=== PATIENT | female | born 1955 | race Caucasian/White ===

== ENCOUNTER 2018-07-11 08:32 | Day surgery (SDC) | payer OTHER, SELFPAY ==
[2018-07-11 08:41] VITALS: BP 115/71; PULSE 98; RESP 16; TEMP 36.8; O2SAT 100; BMI 24.7
[2018-07-11] MEDS: SODIUM CHLORIDE 0.9% 1,000 ML 200 ML IV (08:57)
--- NOTE | 2018-07-11 09:24 | PM.HP.1 ---
History of Present Illness Date Patient Seen: 07/11/18 Time Patient Seen: 09:24 Chief complaint: colonoscopy 08859 Narrative: 62-year-old female with personal history of colon polyps who presents now for colorectal screening. It has been at least 5 years since her last examination. On further history today she denies any recent gastrointestinal symptoms. No nausea, vomiting, loss of appetite, abdominal pain, unintended weight loss, change in bowel habits, diarrhea, constipation, melena, hematochezia, or bright red blood per rectum. Patient History Medical History Abnormal Pap smear of cervix (Chronic ~1992) Chronic back pain (Chronic ~1999) Colon polyps (Chronic ~2008) GERD (gastroesophageal reflux disease) (Chronic) Hiatal hernia (Chronic) Migraines (Chronic ~1983) Surgical History Anesthesia (Resolved) Broken nose (Resolved) Status post delivery Status post delivery Status post colonoscopy Family & Social History Family History: Reviewed 07/11/18 by Albaro Murray MD Social History: household members family Tobacco & Substance use: Smoking Status Former smoker Meds Home Medications Medication Instructions Recorded Confirmed Type omeprazole magnesium [Prilosec OTC] 20 mg PO Q DAY #0 08/29/11 01/19/18 History mupirocin 2 % TOPICAL QID #22 gm 08/10/16 01/19/18 Rx cephalexin [Keflex] 500 mg PO TID #21 cap 10/11/17 01/19/18 Rx terbinafine HCl [Lamisil] 250 mg PO QDAY #84 tab 10/11/17 01/19/18 Rx varicella-zoster glycoE vacc-[id number] 0.5 ml IM ONCE #1 each 01/19/18 Rx adj(PF) 50 mcg/0.5 mL IM susp, kit Allergies Allergy/AdvReac Type Severity Reaction Status Date / Time clindamycin Allergy Mild Rash Verified 07/11/18 08:41 Review of Systems Review of Systems All systems reviewed & are unremarkable except as noted in HPI and below Exam Vital Signs (past 8 hours): - 07/11/18 08:41 Temperature 98.2 F Pulse Rate 98 H Respiratory Rate 16 Blood Pressure 115/71 Pulse Oximetry 100 Oxygen Delivery Method Room Air Narrative Exam Narrative: Well-nourished well-developed female in no acute distress. Alert oriented x3 Sclera nonicteric Regular rate and rhythm. No murmurs, gallops, rubs. No crackles or wheezes. Abdomen soft, nondistended, nontender, no masses Extremities show no clubbing, cyanosis, or edema Objective Labs Labs: No recent laboratory or radiographic studies review Assessment & Plan Plan: Assessment/Plan Narrative: 62-year-old female with personal history of colon polyps who requires colorectal screening for such. Colonoscopy is currently recommended. Technical details of the procedure were explained. Risks, benefits, alternatives were discussed. Risks including but not limited to sedation, aspiration, bleeding, pain, missed lesion, incomplete examination, need for further radiographic studies, colonic perforation, need for major abdominal surgery, and all attendant risks of major surgery were discussed in detail. All questions were answered to her satisfaction, and she voiced understanding. Consent was placed on the chart. We will proceed as above.
--- NOTE | 2018-07-11 09:27 | PM.PREOP ---
Pre-operative Note Interval Note Pre-op Check: Yes History & Physical Reviewed by Physician, Yes Exam Performed and Yes History & Physical exam performed today by Physician Changes: No H&P completed within 30 days and has changed as indicated here:: Patient seen and examined today. History and physical examination documented and placed on the chart. Proceed with colonoscopy today as planned. ASA Class (for procedural sedation): I
[2018-07-11] MEDS: fentaNYL 250 MCG/5 ML INJ IV (09:50)
[2018-07-11] MEDS: MIDAZOLAM 5 MG/5 ML VIAL IV (09:51)
--- NOTE | 2018-07-11 09:54 | PM.OP.ENDO ---
Operative Date/Time/Diagnoses Date of procedure: 07/11/18 Time of procedure: 09:54 Pre-op diagnosis: Personal history of colon polyps Post-op diagnosis: same Procedure & Clinicians Study performed: 1. Sedation per surgeon 2. Colonoscopy Same procedure as scheduled: Yes Indications: 62-year-old female with history of colon polyps many years ago on endoscopy. However, her last endoscopy was normal approximately 5 years ago. She presents now for colorectal surveillance. Colonoscopy is once again recommended. Surgeon: Albaro Murray Procedure Notes SCOAP/Timeout: Yes Procedure in detail: After obtaining informed consent, the patient was brought to the GI suite and placed in the left lateral decubitus position on the examination table. After placement of appropriate monitors, the patient was given incremental doses of Versed and Fentanyl until an appropriate level of sedation was achieved. A time out was held per SCOAP protocol. A digital rectal examination was performed and did not reveal any masses or obstructing lesions. The colonoscope was gently passed into the patient's anus and the entire colon navigated to the level of the cecum with minimal difficulty. Once in the cecum, the scope was withdrawn being sure to go before and beyond all mucosal folds and prominences and get an excellent examination. The findings are noted above. At the level of the rectal vault, the scope was retroflexed and the internal anal canal was examined. The scope was straightened and air aspirated from the colon. The instrument was removed from the patient's body and the procedure was concluded. The patient was allowed to awaken from sedation without difficulty and taken to the post-anesthesia care unit in good condition. Scope withdrawal time: 7:28 min Sedation minutes: 21 Findings: diverticulosis and other findings (External hemorrhoids, not inflamed or thrombosed) Specimen(s): none sent Complications: none Recommendations: Colonscopy in 10 years and High fiber diet Plan for aftercare: 1. Discharged home Follow up: as needed Disposition: PACU
[2018-07-11 09:56] VITALS: BP 101/66; PULSE 85; RESP 14; TEMP 36.7; O2SAT 100
[2018-07-11 10:02] VITALS: BP 96/62; PULSE 79; RESP 13; O2SAT 100
[2018-07-11 10:06] VITALS: BP 99/68; PULSE 84; RESP 11; TEMP 37.1; O2SAT 100
[2018-07-11 10:11] VITALS: BP 98/64; PULSE 82; RESP 15; TEMP 36.7; O2SAT 99
== END 2018-07-11 10:24 ==
LOC: ENDO 08:33
PROVIDERS: PCP Family Medicine; Visit Provider Surgery
PROC: 0DJD8ZZ Inspection of Lower Intestinal Tract, Via Natural or Artificial Opening Endoscopic (ICD-10-PCS; CPT 45378; principal; 2018-07-11 09:45)
DX: Z86.010 Personal history of colon polyps (principal); K57.30 Diverticulosis of large intestine without perforation or abscess without bleeding; K64.4 Residual hemorrhoidal skin tags; Z87.891 Personal history of nicotine dependence
CPT/HCPCS: 45378; 99152; J2250; J3010

== ENCOUNTER → 2018-12-12 07:32 | Outpatient (CLI) | payer OTHER, SELFPAY ==
--- NOTE | 2018-12-12 | DI.MG.S_ITS ---
BILATERAL DIGITAL SCREENING MAMMOGRAM 3D/2D WITH CAD: 12/12/2018 CLINICAL: Routine screening. Family history of breast cancer. Comparison is made to exams dated: 12/06/2017 mammogram, 12/03/2016 mammogram, and 11/28/2015 mammogram - [facility]. The tissue of both breasts is heterogeneously dense. This may lower the sensitivity of mammography. Current study was also evaluated with a Computer Aided Detection (CAD) system. No significant masses, calcifications, or other findings are seen in either breast. There has been no significant interval change. IMPRESSION: NEGATIVE There is no mammographic evidence of malignancy. A 1 year screening mammogram is recommended. This exam was interpreted at Station ID: [id number]. NOTE: For mammograms, a report in lay terms will be sent to the patient. Approximately 15% of breast malignancies will not be visualized mammographically. In the management of a palpable breast mass, a negative mammogram must not discourage biopsy of a clinically suspicious lesion. Electronically Signed By: Stephania kennedy/yogi:12/12/2018 09:23:00 letter sent: Normal Exam ACR BI-RADS Category 1: Negative 3341F
[2018-12-12 08:09] LABS: Add Manual Diff / Slide Review NO; Basophils Absolute Auto 0 /uL (0-100); Basophils Percent Auto 0.8 % (0-2); Eosinophils Absolute Auto 100 /uL (0-450); Eosinophils Percent Auto 2.4 % (2-4); Hematocrit 42.4 % (36-46); Hemoglobin 14.1 g/dL (12.0-16.0); Lymphocytes Absolute Auto 1700 /uL (1100-4500); Lymphocytes Percent Auto 40.6 % (25-40); Mean Corpuscular HGB Conc 33.2 % (30-36); Mean Corpuscular Hemoglobin 29.7 PG (26-34); Mean Corpuscular Volume 89.3 fL (80-100); Monocytes Absolute Auto 400 /uL (0-900); Neutrophils Absolute Auto 2000 /uL (1500-7000); Neutrophils Percent Auto 47.2 % (50-75); Platelet Count 232 X10^3/uL (150-400); Red Blood Cell Count 4.75 X10^6/uL (4.0-5.2); Red Cell Distribution Width 12.9 % (11.6-14.8); White Blood Cell Count 4.1 X10^3/uL (4.5-11.0)
[2018-12-12 08:16] LABS: Alanine Aminotransferase 30 IU/L (9-52); Albumin 4.8 g/dL (3.5-5.0); Albumin Globulin Ratio 1.5 (1.0-2.8); Alkaline Phosphatase 55 U/L (38-126); Aspartate Aminotransferase 30 IU/L (14-36); BUN Creatinine Ratio 18.8 (6-22); Bilirubin Total 0.2 mg/dL (0.2-1.3); Blood Urea Nitrogen 15 mg/dL (7-17); Calcium 10.2 mg/dL (8.4-10.2); Carbon Dioxide 30 mmol/L (22-32); Chloride 103 mmol/L (98-107); Cholesterol 207 mg/dL (140-199); Estimated Glomerular Filt Rate > 60.0 mL/min (>60); Globulin 3.3 g/dL (1.7-4.1); Glucose 101 mg/dL (80-110); HDL Cholesterol 40 mg/dL (40-60); HEMOLYSIS < 15 (0-50); LDL Cholesterol Calculated 146 mg/dL (<100); Potassium 4.6 mmol/L (3.4-5.1); Sodium 142 mmol/L (137-145); Total Protein 8.1 g/dL (6.3-8.2); Triglycerides 107 mg/dL (35-150)
[2018-12-12 08:59] LABS: TSH w/ Reflex to FT4 2.62 uIU/mL (0.47-4.68)
== END ==
PROVIDERS: PCP Family Medicine; Visit Provider Family Medicine
DX: Z00.00 Encounter for general adult medical examination without abnormal findings (principal); Z12.31 Encounter for screening mammogram for malignant neoplasm of breast; Z80.3 Family history of malignant neoplasm of breast; E78.2 Mixed hyperlipidemia
CPT/HCPCS: 36415; 77063; 77067; 80053; 80061; 84443; 85025

== ENCOUNTER → 2019-01-25 10:13 | Outpatient (CLI) | payer OTHER, SELFPAY ==
--- NOTE | 2019-01-25 10:14 | DI.RAD.S_ITS ---
PROCEDURE: XR CHEST 2V INDICATIONS: Cough TECHNIQUE: 2 views of the chest were acquired. COMPARISON: None. FINDINGS: Surgical changes and devices: None. Lungs and pleura: Lungs are clear. No pleural effusions or pneumothorax. Mediastinum: Mediastinal contours are normal. Heart size is normal. Bones and chest wall: No suspicious bony abnormalities. Soft tissues appear unremarkable. IMPRESSION: Normal for age, source of current cough symptoms is not seen. Dictated by: Obed Nagy M.D. on 01/25/2019 at 10:48 Approved by: Obed Nagy M.D. on 01/25/2019 at 10:48
== END ==
PROVIDERS: PCP Family Medicine; Visit Provider Family Medicine
DX: R05 Cough (principal)
CPT/HCPCS: 71046

== ENCOUNTER → 2020-01-29 07:37 | Outpatient (CLI) | payer OTHER, SELFPAY ==
--- NOTE | 2020-01-29 | DI.MG.S_ITS ---
BILATERAL DIGITAL SCREENING MAMMOGRAM 3D/2D WITH CAD: 01/29/2020 CLINICAL: Routine screening. Family history of breast cancer. Comparison is made to exams dated: 12/12/2018 mammogram, 12/06/2017 mammogram, and 12/03/2016 mammogram - [facility]. The tissue of both breasts is heterogeneously dense. This may lower the sensitivity of mammography. Current study was also evaluated with a Computer Aided Detection (CAD) system. No significant masses, calcifications, or other findings are seen in either breast. There has been no significant interval change. IMPRESSION: NEGATIVE There is no mammographic evidence of malignancy. A 1 year screening mammogram is recommended. This exam was interpreted at Station ID: [id number]. NOTE: For mammograms, a report in lay terms will be sent to the patient. Approximately 15% of breast malignancies will not be visualized mammographically. In the management of a palpable breast mass, a negative mammogram must not discourage biopsy of a clinically suspicious lesion. Electronically Signed By: Stephania kennedy/yogi:01/29/2020 09:07:21 letter sent: Normal Exam ACR BI-RADS Category 1: Negative 3341F
[2020-01-29 08:25] LABS: Add Manual Diff / Slide Review NO; Basophils Absolute Auto 0 /uL (0-100); Basophils Percent Auto 0.9 % (0-2); Eosinophils Absolute Auto 100 /uL (0-450); Eosinophils Percent Auto 2.6 % (2-4); Hematocrit 40.6 % (36-46); Hemoglobin 13.7 g/dL (12.0-16.0); Lymphocytes Absolute Auto 1600 /uL (1100-4500); Lymphocytes Percent Auto 38.1 % (25-40); Mean Corpuscular HGB Conc 33.7 % (30-36); Mean Corpuscular Hemoglobin 29.9 PG (26-34); Mean Corpuscular Volume 88.8 fL (80-100); Monocytes Absolute Auto 400 /uL (0-900); Monocytes Percent Auto 9.1 % (3-14); Neutrophils Absolute Auto 2000 /uL (1500-7000); Neutrophils Percent Auto 49.3 % (50-75); Platelet Count 228 X10^3/uL (150-400); Red Blood Cell Count 4.58 X10^6/uL (4.0-5.2); Red Cell Distribution Width 12.9 % (11.6-14.8); White Blood Cell Count 4.1 X10^3/uL (4.5-11.0)
[2020-01-29 08:41] LABS: Alanine Aminotransferase 25 IU/L (<35); Albumin 4.8 g/dL (3.5-5.0); Albumin Globulin Ratio 1.5 (1.0-2.8); Alkaline Phosphatase 53 U/L (38-126); Aspartate Aminotransferase 35 IU/L (14-36); BUN Creatinine Ratio 20.3 (6-22); Bilirubin Total 0.5 mg/dL (0.2-1.3); Blood Urea Nitrogen 15 mg/dL (7-17); Calcium 10.3 mg/dL (8.4-10.2); Carbon Dioxide 28 mmol/L (22-32); Chloride 106 mmol/L (98-107); Cholesterol 205 mg/dL (140-199); Estimated Glomerular Filt Rate > 60.0 mL/min (>60); Globulin 3.3 g/dL (1.7-4.1); Glucose 97 mg/dL (80-110); HDL Cholesterol 40 mg/dL (40-60); HEMOLYSIS < 15 (0-50); LDL Cholesterol Calculated 144 mg/dL (<100); Potassium 4.6 mmol/L (3.4-5.1); Sodium 141 mmol/L (137-145); Total Protein 8.1 g/dL (6.3-8.2); Triglycerides 103 mg/dL (35-150)
== END ==
PROVIDERS: PCP Family Medicine; Referring Provider Family Medicine; Visit Provider Family Medicine
DX: Z12.31 Encounter for screening mammogram for malignant neoplasm of breast; Z80.3 Family history of malignant neoplasm of breast; E78.5 Hyperlipidemia, unspecified
CPT/HCPCS: 36415; 77063; 77067; 80053; 80061; 85025

== ENCOUNTER → 2020-02-12 13:09 | Outpatient (CLI) | payer OTHER, SELFPAY | PROVIDERS: PCP Family Medicine; Referring Provider Family Medicine; Visit Provider Family Medicine | DX: M85.851 Other specified disorders of bone density and structure, right thigh (principal); Z78.0 Asymptomatic menopausal state; Z87.891 Personal history of nicotine dependence | CPT/HCPCS: 77080 ==

== ENCOUNTER → 2020-10-24 07:07 | Outpatient (CLI) | payer OTHER, SELFPAY ==
[2020-10-24 08:35] LABS: Alanine Aminotransferase 21 IU/L (<35); Albumin 4.4 g/dL (3.5-5.0); Albumin Globulin Ratio 1.6 (1.0-2.8); Alkaline Phosphatase 47 U/L (38-126); Aspartate Aminotransferase 29 IU/L (14-36); BUN Creatinine Ratio 23.9 (6-22); Bilirubin Total 0.3 mg/dL (0.2-1.3); Blood Urea Nitrogen 17 mg/dL (7-17); Carbon Dioxide 30 mmol/L (22-32); Chloride 105 mmol/L (98-107); Cholesterol 144 mg/dL (140-199); Estimated Glomerular Filt Rate > 60.0 mL/min (>60); Globulin 2.7 g/dL (1.7-4.1); Glucose 93 mg/dL (80-110); HDL Cholesterol 50 mg/dL (40-60); HEMOLYSIS < 15 (0-50); LDL Cholesterol Calculated 83 mg/dL (<100); Potassium 4.7 mmol/L (3.4-5.1); Sodium 140 mmol/L (137-145); Total Protein 7.1 g/dL (6.3-8.2); Triglycerides 57 mg/dL (35-150)
== END ==
PROVIDERS: PCP Family Medicine; Referring Provider Family Medicine; Visit Provider Family Medicine
DX: E78.2 Mixed hyperlipidemia (principal)
CPT/HCPCS: 36415; 80053; 80061

== ENCOUNTER → 2021-02-17 10:33 | Outpatient (CLI) | payer OTHER, SELFPAY ==
--- NOTE | 2021-02-17 | DI.MG.S_ITS ---
BILATERAL DIGITAL SCREENING MAMMOGRAM 3D/2D WITH CAD: 02/17/2021 CLINICAL: Routine screening. Family history of breast cancer. Comparison is made to exams dated: 01/29/2020 mammogram, 12/12/2018 mammogram, and 12/06/2017 mammogram - [facility]. The tissue of both breasts is heterogeneously dense. This may lower the sensitivity of mammography. Current study was also evaluated with a Computer Aided Detection (CAD) system. No suspicious mammographic finding in either breast. IMPRESSION: NEGATIVE No mammographic evidence of malignancy. Screening mammography is recommended. This exam was interpreted at Station ID: [id number]. NOTE: For mammograms, a report in lay terms will be sent to the patient. Approximately 15% of breast malignancies will not be visualized mammographically. In the management of a palpable breast mass, a negative mammogram must not discourage biopsy of a clinically suspicious lesion. Electronically Signed By: Allen Brooks M.D. jr/:02/17/2021 13:10:31 Entry: sharad - 02/18/2021 09:17:11 letter sent: Normal Exam ACR BI-RADS Category 1: Negative 3341F
== END ==
PROVIDERS: PCP Family Medicine; Referring Provider Family Medicine; Visit Provider Family Medicine
DX: Z12.31 Encounter for screening mammogram for malignant neoplasm of breast (principal); Z80.3 Family history of malignant neoplasm of breast
CPT/HCPCS: 77063; 77067

== ENCOUNTER → 2022-02-18 07:04 | Outpatient (CLI) | payer OTHER, SELFPAY ==
--- NOTE | 2022-02-18 07:05 | DI.MG.S_ITS ---
BILATERAL DIGITAL SCREENING MAMMOGRAM 3D/2D WITH CAD: 02/18/2022 CLINICAL: Routine screening. Family history of breast cancer. Comparison is made to exams dated: 02/17/2021 mammogram, 01/29/2020 mammogram, and 12/12/2018 mammogram - [facility]. The tissue of both breasts is heterogeneously dense. This may lower the sensitivity of mammography. Current study was also evaluated with a Computer Aided Detection (CAD) system. There are mole markers on the right breast. There is a mole marker on the left breast. No significant masses, calcifications, or other findings are seen in either breast. There has been no significant interval change. IMPRESSION: NEGATIVE There is no mammographic evidence of malignancy. A 1 year screening mammogram is recommended. This exam was interpreted at Station ID: [id number]. NOTE: For mammograms, a report in lay terms will be sent to the patient. Approximately 15% of breast malignancies will not be visualized mammographically. In the management of a palpable breast mass, a negative mammogram must not discourage biopsy of a clinically suspicious lesion. Electronically Signed By: Bob Rivas acr/penrad:02/18/2022 10:03:15 letter sent: Normal Exam ACR BI-RADS Category 1: Negative 3341F
[2022-02-18 08:26] LABS: Alanine Aminotransferase 24 IU/L (<35); Albumin 4.7 g/dL (3.5-5.0); Albumin Globulin Ratio 1.5 (1.0-2.8); Alkaline Phosphatase 55 U/L (38-126); Aspartate Aminotransferase 32 IU/L (14-36); BUN Creatinine Ratio 17.9 (6-22); Bilirubin Total 0.4 mg/dL (0.2-1.3); Blood Urea Nitrogen 14 mg/dL (7-17); Calcium 9.3 mg/dL (8.4-10.2); Carbon Dioxide 30 mmol/L (22-32); Chloride 103 mmol/L (98-107); Estimated Glomerular Filt Rate > 60 mL/min (>60); Globulin 3.1 g/dL (1.7-4.1); Glucose 90 mg/dL (80-110); HEMOLYSIS < 15 (0-50); Sodium 141 mmol/L (137-145); Total Protein 7.8 g/dL (6.3-8.2)
== END ==
PROVIDERS: PCP Family Medicine; Referring Provider Family Medicine; Visit Provider Family Medicine
DX: Z12.31 Encounter for screening mammogram for malignant neoplasm of breast (principal); Z80.3 Family history of malignant neoplasm of breast; E78.2 Mixed hyperlipidemia; K21.00 Gastro-esophageal reflux disease with esophagitis, without bleeding
CPT/HCPCS: 36415; 77063; 77067; 80053

== ENCOUNTER → 2022-07-27 07:43 | Outpatient (CLI) | payer OTHER, SELFPAY ==
[2022-07-27 09:34] LABS: Cholesterol 149 mg/dL (140-199); HDL Cholesterol 48 mg/dL (40-60); LDL Cholesterol Calculated 87 mg/dL (<100); Triglycerides 68 mg/dL (35-150)
== END ==
PROVIDERS: PCP Family Medicine; Referring Provider Family Medicine; Visit Provider Family Medicine
DX: Z00.00 Encounter for general adult medical examination without abnormal findings (principal); E78.2 Mixed hyperlipidemia
CPT/HCPCS: 36415; 80061

== ENCOUNTER → 2022-12-07 09:20 | Outpatient (CLI) | payer MEDICARE, SELFPAY ==
--- NOTE | 2022-12-07 09:23 | DI.MG.S_ITS ---
BILATERAL DIGITAL DIAGNOSTIC MAMMOGRAM 3D/2D: 12/07/2022 CLINICAL: Right breast lump. Comparison is made to exams dated: 02/18/2022 mammogram, 02/17/2021 mammogram, 01/29/2020 mammogram, 12/12/2018 mammogram, and 12/06/2017 mammogram - [facility]. Both breasts are heterogeneously dense, which may obscure small masses (category c / 51-75% glandular tissue). No significant masses, calcifications, or other findings are seen in either breast. IMPRESSION: INCOMPLETE: NEEDS ADDITIONAL IMAGING EVALUATION No mammographic evidence of malignancy. A targeted ultrasound is recommended and will immediately follow. Based on the Tyrer Cuzick model (a risk assessment model) the patient's lifetime risk is 15.8% and her 10 year risk is 7.8%. According to the ACR, ACS, and NCCN guidelines, an annual breast MRI exam along with mammogram is recommended if the patient's lifetime risk is 20% or greater. This exam was interpreted at Station ID: [id number]. NOTE: For mammograms, a report in lay terms will be sent to the patient. Approximately 15% of breast malignancies will not be visualized mammographically. In the management of a palpable breast mass, a negative mammogram must not discourage biopsy of a clinically suspicious lesion. Electronically Signed By: Ishan Saldivar M.D. slc/:12/07/2022 10:21:23 ACR BI-RADS Category 0: Incomplete [id number]
--- NOTE | 2022-12-07 09:23 | DI.US.S_ITS ---
LIMITED ULTRASOUND OF RIGHT BREAST: 12/07/2022 CLINICAL: Palpable right breast lump. Comparison is made to exams dated: 12/07/2022 mammogram, 02/18/2022 mammogram, 02/17/2021 mammogram, 01/29/2020 mammogram, 12/12/2018 mammogram, and 12/06/2017 mammogram - [facility]. Color flow, real-time, and continuous wave Doppler ultrasound of the right breast 9 o'clock, 12 o'clock, and retroareolar regions were performed. Platt scale images of the real-time examination were reviewed. There is a 3.6 cm x 2.4 cm x 1 cm mass with an indistinct margin in the right breast at 9 o'clock in the retroareolar region. This mass is hypoechoic. This correlates as palpated and with area of redness. Color flow imaging demonstrates that there is no vascularity present. This is not appreciated on mammogram. Comparison to the contralateral left breast was performed. No similar tissue on the left. IMPRESSION: PROBABLY BENIGN Right retroareolar breast hypoechoic region or mass measuring 3.6 cm corresponding to the palpable abnormality is probably benign. Patient was recently treated with antibiotics for mastitis. Patient reports that the palpable abnormality is decreased in size. This could represent a resolving infection. A follow-up ultrasound in 1 month is recommended. Patient is advised to monitor for significant change. This exam was interpreted at Station ID: [id number]. Electronically Signed By: Ishan Saldivar M.D. slc/:12/07/2022 11:40:11 letter sent: Followup Recommended Ultrasound BI-RADS: 3 Probably benign
== END ==
PROVIDERS: PCP Family Medicine; Referring Provider Family Medicine; Visit Provider Family Medicine
DX: N63.15 Unspecified lump in the right breast, overlapping quadrants; R92.2 Inconclusive mammogram
CPT/HCPCS: 76642; 77066; G0279

== ENCOUNTER → 2023-03-09 07:38 | Outpatient (CLI) | payer MEDICARE, SELFPAY ==
[2023-03-09 09:08] LABS: Add Manual Diff / Slide Review NO; Basophils Absolute Auto 0 /uL (0-100); Basophils Percent Auto 0.6 % (0-2); Eosinophils Absolute Auto 100 /uL (0-450); Eosinophils Percent Auto 3.9 % (2-4); Hematocrit 38.8 % (36-46); Hemoglobin 13.2 g/dL (12.0-16.0); Lymphocytes Absolute Auto 1400 /uL (1100-4500); Lymphocytes Percent Auto 36.7 % (25-40); Mean Corpuscular Hemoglobin 29.6 PG (26-34); Mean Corpuscular Volume 87.3 fL (80-100); Monocytes Absolute Auto 300 /uL (0-900); Monocytes Percent Auto 8.2 % (3-14); Neutrophils Absolute Auto 1900 /uL (1500-7000); Neutrophils Percent Auto 50.6 % (50-75); Platelet Count 203 X10^3/uL (150-400); Red Blood Cell Count 4.44 X10^6/uL (4.0-5.2); Red Cell Distribution Width 13.2 % (11.6-14.8); White Blood Cell Count 3.8 X10^3/uL (4.5-11.0)
[2023-03-09 09:53] LABS: Alanine Aminotransferase 45 IU/L (<35); Albumin 4.6 g/dL (3.5-5.0); Albumin Globulin Ratio 1.6 (1.0-2.8); Alkaline Phosphatase 60 U/L (38-126); Aspartate Aminotransferase 42 IU/L (14-36); BUN Creatinine Ratio 21.7 (6-22); Bilirubin Total 0.6 mg/dL (0.2-1.3); Blood Urea Nitrogen 15 mg/dL (7-17); Calcium 9.8 mg/dL (8.4-10.2); Carbon Dioxide 27 mmol/L (22-32); Chloride 103 mmol/L (98-107); Cholesterol 177 mg/dL (140-199); Estimated Glomerular Filt Rate > 60 mL/min (>60); Globulin 2.9 g/dL (1.7-4.1); Glucose 88 mg/dL (80-110); HDL Cholesterol 51 mg/dL (40-60); HEMOLYSIS 32 (0-50); LDL Cholesterol Calculated 109 mg/dL (<100); Potassium 4.5 mmol/L (3.4-5.1); Sodium 138 mmol/L (137-145); Total Protein 7.5 g/dL (6.3-8.2); Triglycerides 84 mg/dL (35-150)
== END ==
PROVIDERS: PCP Family Medicine; Referring Provider Family Medicine; Visit Provider Family Medicine
DX: D72.819 Decreased white blood cell count, unspecified (principal); E78.2 Mixed hyperlipidemia; K21.9 Gastro-esophageal reflux disease without esophagitis
CPT/HCPCS: 36415; 80053; 80061; 82306; 85025; 86140

== ENCOUNTER → 2023-03-24 10:10 | Outpatient (CLI) | payer MEDICARE, SELFPAY ==
--- NOTE | 2023-03-24 10:11 | DI.US.S_ITS ---
ULTRASOUND OF RIGHT BREAST: 03/24/2023 CLINICAL: Patient returns today to evaluate a focal asymmetry in the right breast. Comparison is made to exams dated: 12/07/2022 ultrasound, 12/07/2022 mammogram, 02/18/2022 mammogram, 02/17/2021 mammogram, 01/29/2020 mammogram, and 12/12/2018 mammogram - [facility]. Color flow and real-time ultrasound of the right breast were performed on the areas of interest. Platt scale images of the real-time examination were reviewed. IMPRESSION: NEGATIVE There is no sonographic evidence of malignancy. There is no sonographic abnormality seen in the right breast to correspond with the area of clinical concern in the sub-areolar depth which has clinically resolved. Return to annual mammogram screening schedule is recommended. This exam was interpreted at Station ID: [id number]. Electronically Signed By: Stephania Archer M.D. lk/:03/24/2023 11:01:19 letter sent: Clinical Evaluation Ultrasound BI-RADS: 1 Negative
--- NOTE | 2023-03-24 11:12 | DI.DEXA.S_ITS ---
Bone Density Report Name: FRANK BUSTILLO Age: 67 Sex: Female Ethnicity: White Date of : 1955 Indication: osteopenia; Referring Provider: VIDAL QUIROZ Study: Bone densitometry was performed. Exam Date: March 24, 2023 Accession number: [id number] Bone Density: Region BMD T-score Z-score Classification AP Spine(L1-L4) 1.025 -0.2 1.6 Normal Femoral Neck (Left) 0.632 -2.0 -0.4 Osteopenia Total Hip (Left) 0.737 -1.7 -0.4 Osteopenia Femoral Neck (Right) 0.611 -2.1 -0.6 Osteopenia Total Hip (Right) 0.731 -1.7 -0.5 Osteopenia Total Hip Mean 0.734 -1.7 -0.5 Osteopenia World Health Organization criteria for BMD impression classify patients as: Normal (T-score at or above -1.0), Osteopenia (T-score between -1.0 and -2.5), or Osteoporosis (T-score at or below -2.5). 10-year Fracture Risk(1): Major Osteoporotic Fracture 11% Hip Fracture 1.9% Reported Risk Factors: [place] (), Neck BMD=0.611, BMI=24.0 (1) FRAX(R) Version 3.08. Fracture probability calculated for an untreated patient. Fracture probability may be lower if the patient has received treatment. Previous Exams: -- Region Exam Age BMD T-score BMD Change BMD Change Date g/cm2 vs Baseline vs Previous -- AP Spine (L1-L4) 03/24/2023 67 1.025 -0.2 -0.031 (-3.0%)# -0.031 (-3.0%)# 02/12/2020 64 1.056 0.1 Total Hip(Left) 03/24/2023 67 0.737 -1.7 -0.005 (-0.7%)# -0.005 (-0.7%)# 02/12/2020 64 0.742 -1.6 Total Hip(Right) 03/24/2023 67 0.731 -1.7 -0.001 (-0.2%)# -0.001 (-0.2%)# 02/12/2020 64 0.732 -1.7 -- *Denotes significance at 95% confidence level, LSC for AP Spine = 0.022 g/cm2, LSC for Total Hip = 0.027 g/cm2 # Denotes dissimilar scan types or analysis methods Impression: The patient has low bone mass, based on the Right Femoral Neck T-score. The patient has an estimated ten-year risk of hip fracture of 1.9% and an estimated ten-year risk of major fracture of 11%, based on the WHO FRAX algorithm. No significant bone loss was observed. Discussion: BONE DENSITY IS LOW AT ONE OR MORE SKELETAL SITES. This patient's lowest T-score is low at one or more skeletal sites. It meets the World Health Organization's (WHO) criteria for ?low bone mass? (T-score between -1.0 and -2.5). The patient's 10-year risk of fracture as calculated by FRAX is less than the threshold where pharmacological therapy is recommended by the National Osteoporosis Foundation (NOF). However, all treatment decisions require clinical judgment and consideration of individual patient factors, including patient preferences, comorbidities, previous drug use, risk factors not captured in the FRAX model (e.g., frailty, falls, vitamin D deficiency, increased bone turnover, interval significant decline in bone density) and possible under or overestimation of fracture risk by FRAX. The patient should follow a healthful lifestyle (good nutrition with adequate calcium and vitamin D, and appropriate weight-bearing exercise). Follow-Up: Consider repeating this study in 2 to 3 years to reassess this patient's status, or sooner if there is some new clinical indication. Reported by: PHIL NARANJO M.D. on 03/24/2023 11:21:00 AM.
== END ==
PROVIDERS: PCP Family Medicine; Referring Provider Family Medicine; Visit Provider Family Medicine
DX: M85.851 Other specified disorders of bone density and structure, right thigh (principal); N64.89 Other specified disorders of breast; Z78.0 Asymptomatic menopausal state
CPT/HCPCS: 76642; 77080

== ENCOUNTER → 2023-11-07 10:57 | Outpatient (CLI) | payer MEDICARE, SELFPAY ==
--- NOTE | 2023-11-07 10:59 | DI.RAD.S_ITS ---
PROCEDURE: XR CHEST 2V INDICATIONS: Persistent cough TECHNIQUE: 2 views of the chest were acquired. COMPARISON: [facility], CR, XR CHEST 2V, 01/25/2019, 10:17. FINDINGS: Surgical changes and devices: None. Lungs and pleura: Lungs are clear. No pleural effusions or pneumothorax. Mediastinum: Mediastinal contours are normal. Heart size is normal. Bones and chest wall: No suspicious bony abnormalities. Soft tissues appear unremarkable. IMPRESSION: No acute cardiopulmonary abnormality is seen. Approved by: Julieta Snider M.D. on 11/07/2023 at 10:38
== END ==
LOC: RAD 10:58
PROVIDERS: PCP Family Medicine; Referring Provider Physician Assistant Surgical; Visit Provider Physician Assistant Surgical
DX: R05.9 Cough, unspecified (principal)
CPT/HCPCS: 71046

== ENCOUNTER → 2023-12-17 14:28 | Outpatient (CLI) | payer MEDICARE, SELFPAY ==
--- NOTE | 2023-12-17 | DI.MG.S_ITS ---
BILATERAL DIGITAL SCREENING MAMMOGRAM 3D/2D WITH CAD: 12/17/2023 CLINICAL: Routine screening. Family history of breast cancer. Comparison is made to exams dated: 12/07/2022 mammogram, 02/18/2022 mammogram, and 02/17/2021 mammogram - [facility]. Both breasts are heterogeneously dense, which may obscure small masses (category c / 51-75% glandular tissue). Current study was also evaluated with a Computer Aided Detection (CAD) system. No significant masses, calcifications, or other findings are seen in either breast. There has been no significant interval change. IMPRESSION: NEGATIVE There is no mammographic evidence of malignancy. A 1 year screening mammogram is recommended. Based on the Tyrer Cuzick model (a risk assessment model) the patient's lifetime risk is 15.1% and her 10 year risk is 7.8%. According to the ACR, ACS, and NCCN guidelines, an annual breast MRI exam along with mammogram is recommended if the patient's lifetime risk is 20% or greater. This exam was interpreted at Station ID: [id number]. NOTE: For mammograms, a report in lay terms will be sent to the patient. Approximately 15% of breast malignancies will not be visualized mammographically. In the management of a palpable breast mass, a negative mammogram must not discourage biopsy of a clinically suspicious lesion. Electronically Signed By: Stephania kennedy/yogi:12/17/2023 16:09:46 letter sent: Normal Exam ACR BI-RADS Category 1: Negative 3341F
== END ==
PROVIDERS: PCP Family Medicine; Referring Provider Family Medicine; Visit Provider Family Medicine
DX: Z12.31 Encounter for screening mammogram for malignant neoplasm of breast (principal); Z80.3 Family history of malignant neoplasm of breast; R92.333 Mammographic heterogeneous density, bilateral breasts
CPT/HCPCS: 77063; 77067

== ENCOUNTER → 2024-02-18 07:55 | Outpatient (CLI) | payer MEDICARE, SELFPAY ==
[2024-02-18 08:40] LABS: Add Manual Diff / Slide Review NO; Basophils Absolute Auto 0 /uL (0-100); Basophils Percent Auto 0.5 % (0-2); Eosinophils Absolute Auto 100 /uL (0-450); Eosinophils Percent Auto 3.1 % (2-4); Hematocrit 39.9 % (36-46); Hemoglobin 13.4 g/dL (12.0-16.0); Lymphocytes Absolute Auto 1500 /uL (1100-4500); Lymphocytes Percent Auto 36.1 % (25-40); Mean Corpuscular HGB Conc 33.6 % (30-36); Mean Corpuscular Hemoglobin 29.9 PG (26-34); Monocytes Absolute Auto 300 /uL (0-900); Monocytes Percent Auto 7.9 % (3-14); Neutrophils Absolute Auto 2100 /uL (1500-7000); Neutrophils Percent Auto 52.4 % (50-75); Platelet Count 231 X10^3/uL (150-400); Red Blood Cell Count 4.48 X10^6/uL (4.0-5.2); Red Cell Distribution Width 13.4 % (11.6-14.8); White Blood Cell Count 4.1 X10^3/uL (4.5-11.0)
[2024-02-18 08:48] LABS: Hemoglobin A1C% w Est Avg Glu 5.6 % (4.0-6.0)
[2024-02-18 09:04] LABS: Alanine Aminotransferase 26 IU/L (<35); Albumin 4.6 g/dL (3.5-5.0); Albumin Globulin Ratio 1.5 (1.0-2.8); Alkaline Phosphatase 60 U/L (38-126); Aspartate Aminotransferase 30 IU/L (14-36); BUN Creatinine Ratio 20.7 (6-22); Bilirubin Total 0.5 mg/dL (0.2-1.3); Blood Urea Nitrogen 17 mg/dL (7-17); Calcium 9.8 mg/dL (8.4-10.2); Carbon Dioxide 27 mmol/L (22-32); Chloride 109 mmol/L (98-107); Cholesterol 167 mg/dL (140-199); Estimated Glomerular Filt Rate > 60 mL/min (>60); Glucose 94 mg/dL (80-110); HDL Cholesterol 59 mg/dL (40-60); HEMOLYSIS < 15 (0-50); LDL Cholesterol Calculated 89 mg/dL (<100); Potassium 4.5 mmol/L (3.4-5.1); Sodium 142 mmol/L (137-145); Total Protein 7.6 g/dL (6.3-8.2); Triglycerides 97 mg/dL (35-150)
[2024-02-18 09:08] LABS: High Sensitivity CRP - Cardiac 0.8 mg/L (1.0-3.0)
== END ==
PROVIDERS: PCP Family Medicine; Referring Provider Family Medicine; Visit Provider Family Medicine
DX: Z13.1 Encounter for screening for diabetes mellitus (principal); D72.819 Decreased white blood cell count, unspecified; E78.2 Mixed hyperlipidemia; R74.01 Elevation of levels of liver transaminase levels
CPT/HCPCS: 36415; 80053; 80061; 83036; 85025; 86140

== ENCOUNTER 2024-11-20 08:40 | Emergency (ER) | payer MEDICARE, SELFPAY ==
[2024-11-20] VITALS (9 sets, daily range): BP systolic 110–132; BP diastolic 61–81; PULSE 61–101; RESP 14; TEMP 36.8; O2SAT 95–99; BMI 25.7
--- NOTE | 2024-11-20 08:51 | EKG_ITS ---
[address] [address] Test Date: 2024-11-20 Pat Name: Greer Huerta Department: Room: Gender: Female Regulatory Compliance Specialist: JACQUES : 1955 Requested By: Order Number: [id number] Reading MD: Dustin Richard Measurements Intervals [place] Rate: 86 P: 55 LA: 162 QRS: 47 QRSD: 82 T: 40 QT: 342 QTc: 409 Interpretive Statements Normal sinus rhythm Nonspecific T wave abnormality Electronically Signed On 11-20-2024 15:49:30 PDT by Dustin Richard
[2024-11-20 09:04] LABS: Add Manual Diff / Slide Review NO; Basophils Absolute Auto 0 /uL (0-100); Basophils Percent Auto 0.5 % (0-2); Eosinophils Absolute Auto 100 /uL (0-450); Hematocrit 43.5 % (36-46); Hemoglobin 14.6 g/dL (12.0-16.0); Lymphocytes Absolute Auto 1400 /uL (1100-4500); Lymphocytes Percent Auto 25.5 % (25-40); Mean Corpuscular HGB Conc 33.7 % (30-36); Mean Corpuscular Hemoglobin 29.6 PG (26-34); Monocytes Absolute Auto 400 /uL (0-900); Monocytes Percent Auto 7.3 % (3-14); Neutrophils Absolute Auto 3600 /uL (1500-7000); Neutrophils Percent Auto 64.7 % (50-75); Platelet Count 273 X10^3/uL (150-400); Red Blood Cell Count 4.94 X10^6/uL (4.0-5.2); Red Cell Distribution Width 13.3 % (11.6-14.8); White Blood Cell Count 5.5 X10^3/uL (4.5-11.0)
--- NOTE | 2024-11-20 09:10 | ED_ITS ---
HPI - Abdominal Pain General Chief Complaint: Abdominal Pain Stated Complaint: Sent from [facility] possible Appendicitis Time Seen by Provider: 11/20/24 09:08 Source: patient, RN notes reviewed and old records reviewed Mode of arrival: Ambulatory Limitations: no limitations History of Present Illness HPI narrative: 69-year-old female history of dyslipidemia with complaint of abdominal pain. Patient states Wednesday she had a little bit of stomach discomfort and then it is sort of moved down to her right lower quadrant has been present since. She states got a little bit more intense. It has not been getting any worse but has not improved. She denies any flank or back pain. She has a little bit of nausea today or if she pushes on the ear very hard. Denies any vomiting. She has not appreciate any issues with bowel movements. No dysuria urgency or frequency. No vaginal bleeding or discharge. Has not had similar symptoms in the past. She is traveling to [place] tomorrow so was concerned she might be having appendicitis. Takes pravastatin 10 mg daily, multivitamins and calcium no other daily medications. She was had prior no other prior surgeries. States she has not allergy to clindamycin gets a rash. No tobacco, rare alcohol, no recreational drugs. Last intake for food or water was between 6 and 7:00 a.m. Related Data Home Medications Medication Instructions Recorded Confirmed calcium 1,000 mg PO .QD 01/31/20 02/15/24 multivitamin (Daily Multi-Vitamin 1 tab PO DAILY 01/31/20 02/15/24 tablet) Previous Rx's Medication Instructions Recorded pravastatin 10 mg tablet 10 mg PO BEDTIME #90 tabs 03/27/24 amoxicillin 875 mg-potassium 1 tab PO BID #20 tabs 11/20/24 clavulanate 125 mg tablet Allergies Allergy/AdvReac Type Severity Reaction Status Date / Time clindamycin Allergy Mild Rash Verified 11/20/24 08:57 Review of Systems Review of Systems ROS Unobtainable: All systems reviewed & are unremarkable except as noted in HPI and below Patient History Medical History Leukopenia (~2016) Osteopenia Chronic back pain (~1999) Migraines (~1983) Abnormal Pap smear of cervix (~1992) Hiatal hernia GERD (gastroesophageal reflux disease) Colon polyps (~2008) Surgical History Anesthesia Broken nose Status post colonoscopy Status post delivery Status post delivery Family History Grandmother Diabetes mellitus Mother Age: 87 High cholesterol Sister Age: 67 Breast cancer Social History household members: family Smoking Status: Former smoker Tobacco: How many years used: 30 alcohol intake: current (1 glass of wine per month) substance use type: does not use Smoking Status: Former smoker Exam Narrative Exam Narrative: GENERAL: Alert and oriented x three, female in mild distress HEENT: Head normocephalic, atraumatic, EOMI, pupils reactive, face symmetric, moist mucous membranes NECK: Supple, full range of motion CARDIOVASCULAR: Regular rate and rhythm without murmurs, rubs or gallops. RESPIRATORY: Breath sounds equal bilaterally, no wheezes rales or rhonchi. ABDOMEN: Soft, positive for right lower quadrant tenderness. Normoactive bowel sounds all 4 quadrants. No guarding or rebound, rigidity, no mass : No CVA tenderness EXTREMITIES: Normal range of motion, no clubbing or edema. Neurovascularly intact NEUROLOGICAL: Cranial nerves II through XII grossly intact. Moving all extremities SKIN: Warm, dry, no petechiae, no rashes or lesions. Initial Vital Signs Initial Vital Signs: Vital Signs Temperature 98.2 F 11/20/24 08:45 Pulse Rate 96 H 11/20/24 08:45 Respiratory Rate 14 11/20/24 08:45 Blood Pressure 132/81 11/20/24 08:45 Pulse Oximetry 99 11/20/24 08:45 Oxygen Delivery Method Room Air 11/20/24 08:45 Course Orders Ordered: Discontinued Medications Ondansetron HCl (Ondansetron 4 Mg/2 Ml Inj) 4 mg IV NOW PRN PRN Reason: Nausea And Vomiting Ondansetron HCl (Ondansetron 4 Mg Odt) 4 mg PO NOW PRN PRN Reason: Nausea And Vomiting Vital Signs Vital signs: Vital Signs - 8 hr 11/20/24 08:45 11/20/24 08:48 11/20/24 08:49 Temperature 98.2 F Pulse Rate 96 H 101 H Respiratory Rate 14 Blood Pressure 132/81 132/81 Pulse Oximetry 99 98 Oxygen Delivery Method Room Air 11/20/24 08:49 11/20/24 09:00 11/20/24 09:00 Temperature Pulse Rate 100 H 86 Respiratory Rate Blood Pressure 118/76 Pulse Oximetry 99 97 Oxygen Delivery Method 11/20/24 09:30 11/20/24 09:30 Temperature Pulse Rate 92 H Respiratory Rate Blood Pressure 120/71 Pulse Oximetry 98 Oxygen Delivery Method Room Air MDM - Abdominal Pain Lab Data 11/20/24 08:50 11/20/24 08:50 Labs: Lab Results 11/20/24 11/20/24 Range/Units 08:50 09:23 WBC 5.5 (4.5-11.0) X10^3/uL RBC 4.94 (4.0-5.2) X10^6/uL Hgb 14.6 (12.0-16.0) g/dL Hct 43.5 (36-46) % MCV 88.0 (80-100) fL MCH 29.6 (26-34) PG MCHC 33.7 (30-36) % RDW 13.3 (11.6-14.8) % Plt Count 273 (150-400) X10^3/uL Neut % (Auto) 64.7 (50-75) % Lymph % (Auto) 25.5 (25-40) % [place] % (Auto) 7.3 (3-14) % Eos % (Auto) 2.0 (2-4) % Baso % (Auto) 0.5 (0-2) % Neut # (Auto) 3600 (5685-3184) /uL Lymph # (Auto) 1400 (1928-1056) /uL [place] # (Auto) 400 (0-900) /uL Eos # (Auto) 100 (0-450) /uL Baso # (Auto) 0 (0-100) /uL Sodium 142 (137-145) mmol/L Potassium 3.7 (3.4-5.1) mmol/L Chloride 102 (98-107) mmol/L Carbon Dioxide 24 (22-32) mmol/L BUN 19 H (7-17) mg/dL Creatinine 0.92 (0.52-1.04) mg/dL Estimated GFR > 60 (>60) mL/min BUN/Creatinine Ratio 20.7 (6-22) Glucose 111 H (80-110) mg/dL Calcium 11.2 H (8.4-10.2) mg/dL Total Bilirubin 0.7 (0.2-1.3) mg/dL AST 37 H (14-36) IU/L ALT 37 H (<35) IU/L Alkaline Phosphatase 71 (38-126) U/L Total Protein 9.7 H (6.3-8.2) g/dL Albumin 5.5 H (3.5-5.0) g/dL Globulin 4.2 H (1.7-4.1) g/dL Albumin/Globulin Ratio 1.3 (1.0-2.8) Lipase 124 (23-300) U/L Urine RBC 1-5/hpf (0-5/HPF) Urine WBC None seen (0-5/HPF) Ur Squamous Epith Cells None seen (0-5/HPF) Urine Bacteria None seen (None) Ur Culture Indicated? Cult not indicated Vol Urine Centrifuged 10ml (spun) Point of care testing: Urine Dip Bedside Urine Glucose Negative Bedside Urine Bilirubin - Negative Bedside Urine Ketone - Negative Urine Specific [place] 1.005 Bedside Urine Occult Blood +/- Bedside Urine pH 6.5 Bedside Urine Protein - Negative Bedside Urine Urobilinogen - Negative Bedside Urine Nitrite - Negative Bedside Urine Leukocytes - Negative Esterase ECG Data Attestation: I personally reviewed and interpreted this ECG as follows: Prior ECG tracings: not available for review Interpretation: Sinus rhythm rate 86, SC 162 QRS 82 QTC of 409, no acute ST elevation, nonspecific change. No prior for comparison. MDM Narrative Medical decision making narrative: Labs show normal white count, hemoglobin and platelets. Chemistries show normal electrolytes except for BUN 19 creatinine 0.92 glucose of 111 calcium slightly high at 11.2, bilirubin is 0.7 with a AST of 37 ALT of 37 alk-phos is 71 lipase is 124 patient does have total protein, albumin globulin elevated. Point of care urine shows blood no nitrates or leuks. EKG shows sinus rhythm CT abdomen pelvis shows 1.2 probable cavernous hemangioma no suspicious liver lesion. Cecal diverticulitis with [id number] edema appendix is nondilated no abscess no small-bowel obstruction. States he was 9-year-old female with right lower quadrant pain for the last 3 days labs are overall reassuring urine shows Patient was tender in her right lower quadrant concerning for appendicitis CT abdomen pelvis was obtained appendix appears nondilated there is uncomplicated cecal diverticulitis which is likely the source of her pain. They do note probable benign cavernous hemangioma patient does not have any underlying liver disease or history of malignancy. We will treat with oral antibiotics and have patient follow up. Discharge Plan Departure Patient Disposition: Home Clinical Impression: Cecal diverticulitis Instructions: Diverticulitis Activity Restrictions/Additional Instructions: Your CT shows cecal diverticulitis, this is likely the source of your pain please take oral antibiotics until completed. Your imaging does show what is likely a cavernous hemangioma in your liver, share this information with your physician. If you have any known liver disease/cirrhosis you should have follow up with liver protocol MRI. Take antibiotics until completed. Prescription sent to [facility] Please return for fevers, worsening abdominal back or flank pain, persistent vomiting, black or bloody stools or other new or concerning changes. Prescriptions: New amoxicillin-pot clavulanate 875-125 mg tablet 1 tab PO BID Qty: 20 0RF No Action pravastatin 10 mg tablet 10 mg PO BEDTIME Qty: 90 3RF multivitamin [Daily Multi-Vitamin] Tablet 1 tab PO DAILY calcium 1,000 mg PO .QD Referrals: Yumiko Castaneda DO [Primary Care Provider] - Stand Alone Forms: Patient Portal/API/Survey
[2024-11-20 09:15] LABS: Alanine Aminotransferase 37 IU/L (<35); Albumin 5.5 g/dL (3.5-5.0); Albumin Globulin Ratio 1.3 (1.0-2.8); Alkaline Phosphatase 71 U/L (38-126); Aspartate Aminotransferase 37 IU/L (14-36); BUN Creatinine Ratio 20.7 (6-22); Bilirubin Total 0.7 mg/dL (0.2-1.3); Blood Urea Nitrogen 19 mg/dL (7-17); Calcium 11.2 mg/dL (8.4-10.2); Carbon Dioxide 24 mmol/L (22-32); Chloride 102 mmol/L (98-107); Estimated Glomerular Filt Rate > 60 mL/min (>60); Globulin 4.2 g/dL (1.7-4.1); Glucose 111 mg/dL (80-110); HEMOLYSIS < 15 (0-50); Lipase 124 U/L (23-300); Potassium 3.7 mmol/L (3.4-5.1); Sodium 142 mmol/L (137-145); Total Protein 9.7 g/dL (6.3-8.2)
--- NOTE | 2024-11-20 09:33 | DI.CT.S_ITS ---
PROCEDURE: CT ABDOMEN PELVIS W CON INDICATIONS: RLQ pain for several days, no radiation. TECHNIQUE: After the administration of intravenous contrast, axial sections acquired from the lung bases to the pubic symphysis. Coronal and sagittal reformats were performed. For radiation dose reduction, the following was used: automated exposure control, adjustment of mA and/or kV according to patient size. COMPARISON: None. FINDINGS: Image quality: Diagnostic Lower chest: Unremarkable lung bases. Normal heart size. Mildly patulous distal esophagus. Liver: There is a segment 4 1.2 cm probable cavernous hemangioma. No suspicious liver lesion. Gallbladder and biliary system: Unremarkable, nondilated Pancreas: No ductal dilation Spleen: Nonenlarged Adrenals: No discrete nodules Kidneys: No solid mass. No hydronephrosis. Vessels and lymph nodes: Main portal vein is patent. No pathologic lymph nodes by size criteria. Bowel and peritoneum: No evidence of small bowel obstruction. No drainable abscess or ascites. Overall moderate degree of fecal loading in the colon. Colonic diverticula are seen. The appendix is nondilated. Cecal diverticulitis, with [id number] edema Body wall: Unremarkable Pelvis: Bladder is unremarkable. Reproductive organs are unremarkable on limited CT evaluation Bones: No aggressive appearing osseous abnormality. There are degenerative changes. IMPRESSION: Uncomplicated cecal diverticulitis. The appendix is nondilated. No abscess. No small bowel obstruction. Moderate fecal loading. Segment 4 liver lesion is likely a benign cavernous hemangioma. If the patient has underlying liver disease or other history of malignancy, this could be confirmed with [address] or liver protocol abdominal MRI. Other findings above. Dictated by: López Mo M.D. on 11/20/2024 at 9:48 Approved by: López Mo M.D. on 11/20/2024 at 9:52
[2024-11-20 09:59] LABS: Urine Volume 10mL (spun)
[2024-11-20 10:00] LABS: Bacteria Urine None Seen; RBC Urine 1-5/HPF (0-5/HPF); Squamous Epithelial Cell Urine None Seen (0-5/HPF); WBC Urine None Seen (0-5/HPF)
[2024-11-20 10:01] LABS: Culture Indicated Urine Cult Not Indicated
== END 2024-11-20 10:59 | disposition home or self-care (01) ==
PROVIDERS: Emergency Provider Emergency Medicine; PCP Family Medicine
DX: K57.32 Diverticulitis of large intestine without perforation or abscess without bleeding (principal)
CPT/HCPCS: 36415; 74177; 80053; 81003; 81015; 83690; 85025; 93005; 99283; 99284

== ENCOUNTER → 2025-02-20 09:20 | Outpatient (CLI) | payer MEDICARE, SELFPAY ==
--- NOTE | 2025-02-20 09:22 | DI.MG.S_ITS ---
MM screening mammo BI: 02/20/2025. BI-RADS: 1 CLINICAL: 69-year old female for bilateral screening mammogram. Tyrer-Cuzick lifetime risk of 9.6%. Current reported family history of breast cancer: sister. PRIOR EXAMS 12/17/2023, 03/24/2023, 12/07/2022, 02/18/2022. MAMMOGRAPHY TECHNIQUE: 2D and 3D (tomosynthesis) digital mammographic views obtained, with additional images as needed for full coverage. Current study was also evaluated with a Computer Aided Detection (CAD) system. DENSITY C. The breasts are heterogeneously dense, which may obscure small masses. MAMMOGRAPHY FINDINGS Bilateral: No suspicious mass, asymmetry, microcalcification, or other abnormality seen. No significant change from comparison. IMPRESSION: * No evidence of malignancy. RECOMMENDATIONS Bilateral * Annual screening mammography. OVERALL ASSESSMENT CATEGORY BI-RADS-1: Negative. [employer] recommends annual screening mammography beginning at age 40 for women with average risk of breast cancer. ELECTRONICALLY SIGNED: Reynaldo Frank M.D. on 02/20/2025 at 12:34:30 PM PT
== END ==
PROVIDERS: PCP Family Medicine; Referring Provider Family Medicine; Visit Provider Family Medicine
DX: Z12.31 Encounter for screening mammogram for malignant neoplasm of breast (principal); R92.333 Mammographic heterogeneous density, bilateral breasts; Z80.3 Family history of malignant neoplasm of breast
CPT/HCPCS: 77063; 77067

== ENCOUNTER → 2025-05-04 07:25 | Outpatient (CLI) | payer MEDICARE, SELFPAY ==
[2025-05-04 08:39] LABS: Add Manual Diff / Slide Review NO; Hematocrit 40.1 % (36-46); Hemoglobin 13.5 g/dL (12.0-16.0); Lymphocytes Absolute Auto 1500 /uL (1100-4500); Mean Corpuscular HGB Conc 33.7 % (30-36); Mean Corpuscular Hemoglobin 29.8 PG (26-34); Mean Corpuscular Volume 88.6 fL (80-100); Platelet Count 239 X10^3/uL (150-400)
[2025-05-04 09:14] LABS: Alanine Aminotransferase 26 IU/L (<35); Albumin 4.7 g/dL (3.5-5.0); Albumin Globulin Ratio 1.6 (1.0-2.8); Alkaline Phosphatase 57 U/L (38-126); Blood Urea Nitrogen 18 mg/dL (7-17); Calcium 10.4 mg/dL (8.4-10.2); Carbon Dioxide 28 mmol/L (22-32); Chloride 104 mmol/L (98-107); Cholesterol 176 mg/dL (140-199); Estimated Glomerular Filt Rate > 60 mL/min (>60); Globulin 3.0 g/dL (1.7-4.1); Glucose 97 mg/dL (70-99); HDL Cholesterol 52 mg/dL (40-60); HEMOLYSIS < 15 (0-50); Potassium 4.7 mmol/L (3.4-5.1); Sodium 140 mmol/L (137-145); Total Protein 7.7 g/dL (6.3-8.2); Triglycerides 95 mg/dL (35-150)
[2025-05-05 04:12] LABS: CRP, High Sensitivity 1.26 mg/L (0.00-3.00)
== END ==
PROVIDERS: PCP Family Medicine; Referring Provider Family Medicine; Visit Provider Family Medicine
DX: E78.2 Mixed hyperlipidemia (principal); D72.819 Decreased white blood cell count, unspecified
CPT/HCPCS: 36415; 80053; 80061; 85025; 86140